=== PATIENT | male | born 1955 | race Caucasian/White ===

== ENCOUNTER 2017-07-13 07:27 | Outpatient (CLI) | payer BC ==
--- NOTE | 2017-07-13 10:22 | ULT ---
ABDOMINAL ULTRASOUND: History: Splenomegaly, renal disease. FINDINGS: Real-time imaging of the upper abdomen was performed. This shows a normal appearing gallbladder. The common duct is 4 mm. Liver measures 19.3 cm in length. No focal masses. The spleen measures 17.5 cm. Right and left kidneys are normal in size and not obstructed. Pancreas is partially obscured. Abdomin al aorta and IVC regions appear unremarkable. IMPRESSION: Splenomegaly with borderline hepatomegaly. POS: [facility]
== END 2017-07-13 07:28 | disposition home or self-care (01) ==
LOC: ULT 07:27
PROVIDERS: ATTEND Internal Medicine Hematology & Oncology
DX: R16.1 Splenomegaly, not elsewhere classified (principal); D50.0 Iron deficiency anemia secondary to blood loss (chronic); N18.3 Chronic kidney disease, stage 3 (moderate)
CPT/HCPCS: 76700